=== PATIENT | female | born 1945 | race Caucasian/White ===

== ENCOUNTER 2017-07-02 10:00 | Emergency (ER) | payer MEDICARE, OTHER ==
[~2017-07-02] VITALS: Ht 157.5 cm; Wt 65.8 kg
[~2017-07-02 10:00] MED LIST: ASPIR-LOW81 MG PO; CO Q-10200 MG PO; CRANBERRY PLUS1 EAC1 PO; DETROL LA4 MG PO; GLUCOTEN CAPLE1 EACH PO; HYDROCODON-ACE1 EA11 PO; LISINOPRIL10 MG PO; LUTEIN6 M1 PO; MULTIVITAMINS1 EAC7 PO; OMEGA-3 FISH O1 EAC8 PO; OXYCODONE HCL5 MG PO; TART CHERRY CA1 EACH PO; VITAMIN D31000 UNIT PO; XARELTO10 MG PO; ZOCOR40 MG PO
[2017-07-02] MEDS ORDERED: LOVENOX100 MG/1 M SUB-Q (13:46)
[2017-07-02] MEDS ORDERED: COUMADIN5 MG PO (13:46)
--- NOTE | 2017-07-02 20:31 | EKG ---
[facility] [address] [facility] [place] [id number] Signed Normal sinus rhythm Moderate voltage criteria for LVH, may be normal variant Borderline ECG No previous ECGs available Confirmed by ASIA LEOS MD ([id number]) on 07/02/2017 8:30:58 PM Electronically Signed By: ASIA LEOS MD 07/02/172030 PATIENT NAME: ZAK DESAI MK Electrocardiogram DATE OF : 47 PHYSICIAN: ASIA LEOS MD REPORT #: [id number] REPORT IS CONFIDENTIAL AND NOT TO BE RELEASED WITHOUT AUTHORIZATION
== END 2017-07-02 14:30 | disposition home or self-care (01) ==
LOC: ED 10:00
DX: I82.4Z1 Acute embolism and thrombosis of unspecified deep veins of right distal lower extremity (principal); Z90.710 Acquired absence of both cervix and uterus
CPT/HCPCS: 71260; 80053; 85025; 85379; 85610; 85730; 93005; 93010; 93971; 96372; 99284; J1650; Q9967